=== PATIENT | female | born 1985 | race Caucasian/White ===

== ENCOUNTER 2017-06-23 11:53 | Day surgery (SDC) | payer OTHER, BC ==
[2017-06-23] MEDS ORDERED: PROPOFOL 40 ML (13:12)
== END 2017-06-23 15:02 | disposition home or self-care (01) ==
LOC: GIL 11:53
DX: K29.70 Gastritis, unspecified, without bleeding (principal); E66.01 Morbid (severe) obesity due to excess calories; Z68.42 Body mass index [BMI] 45.0-49.9, adult
CPT/HCPCS: 43239; 84703; 87081